=== PATIENT | male | born 1980 | race Two or more races ===

== ENCOUNTER 2023-09-24 17:22 | Emergency (ER) | payer OTHER ==
[~2023-09-24] VITALS: Ht 172.7 cm; Wt 85.7 kg
[2023-09-24 17:33] VITALS: BP 151/91; PULSE 90; RESP 19; TEMP 98.1; O2SAT 97
[2023-09-24] MEDS ORDERED: IBUP-1842 PO (17:55)
[2023-09-24] MEDS ORDERED: ERYT5OIN51 OP (17:55)
[2023-09-24] MEDS: KETOROLAC 30 MG/ML VIAL IM ONE (18:03)
[2023-09-24 18:46] LABS: FLU A ANTIGEN negative (NEGATIVE); FLU B ANTIGEN NEGATIVE (NEGATIVE)
== END 2023-09-24 18:06 | disposition home or self-care (01) ==
LOC: MED 17:22
DX: B34.9 Viral infection, unspecified (principal); H00.014 Hordeolum externum left upper eyelid; Z20.822 Contact with and (suspected) exposure to COVID-19; M79.18 Myalgia, other site; I10 Essential (primary) hypertension; Z79.899 Other long term (current) drug therapy
CPT/HCPCS: 87426; 87804; 96372; 99283; J1885